=== PATIENT | female | born 1965 | race Caucasian/White ===

== ENCOUNTER 2025-08-11 11:28 | Outpatient (CLI) | payer BC, SELFPAY ==
[2025-08-11 13:10] LABS: ALT 20 U/L (10-49); AST 21 U/L (<34); Albumin 4.6 g/dL (3.4-5.0); Alkaline Phosphatase 67 U/L (46-116); Anion Gap 7.3 mmol/L (3-11); BUN 15 mg/dL (9-23); Bilirubin, Total 0.40 mg/dL (0.2-1.2); CO2 27.7 mmol/L (20.0-31.0); Calcium 9.5 mg/dL (8.3-10.6); Chloride 105 mmol/L (98-107); Glucose 95 mg/dL (74-106); Potassium 4.2 mmol/L (3.5-5.1); Sodium 140 mmol/L (136-145); Total Protein 7.1 g/dL (5.7-8.2)
[2025-08-11 13:13] LABS: TSH 3.82 uIU/mL (0.55-4.78)
[2025-08-11 17:12] LABS: Hemoglobin A1C 5.4 % (<5.7)
[2025-08-11 22:29] LABS: T3,Free 3.8 pg/mL (2.8-5.3)
== END 2025-08-11 11:29 | disposition home or self-care (01) ==
LOC: LBO 11:37
PROVIDERS: PCP Nurse Practitioner Adult Health; Visit Provider Registered Nurse Emergency
DX: E66.9 Obesity, unspecified (principal)
CPT/HCPCS: 36415; 80053; 83036; 84439; 84443; 84481